=== PATIENT | male | born 1985 | race Caucasian/White ===

== ENCOUNTER → 2023-04-28 | Emergency (ER) | payer BC, OTHER ==
--- OUTSIDE RECORDS SUMMARY | 2023-04-28 18:56 | XMS REPORT | Continuity of Care Document ---
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 Phone Unavailable Unavailable Unavailable Payers Payer Name Policy Type Policy Number Effective Date Expirati on Date Source [employer] [id number] 2018 00:00:00 Allergies, Adverse Reactions, Alerts Allergy Name Allergy Type Status Severity Reaction(s) Onset Date Inactive Date Treating Clinician Comments Source NO KNOWN ALLERGIE S Drug Class Active [facility] Encounters Start Date/Time End Date/Time Encounter Type Admission Type Attending Clinicians Care Facility Care Department Encounter ID Source 2020-05-25 10:20:00 2020-05-25 10:20:00 Outpatient [facility] [id number] [facility] 2020-05-04 10:25:00 2020-05-04 10:25:00 Outpatient [facility] [id number] [facility] 2020-05-04 10:25:00 2020-05-04 10:25:00 Outpatient [facility] [id number] [facility]
--- NOTE | 2023-04-28 19:38 | ER ---
Nurse's Notes [facility] Name: Forrest Jolley Age: 38 yrs Sex: Male : 1985 Arrival Date: 04/28/2023 Time: 18:53 Bed IW7 Private MD: Diagnosis: Scalp Laceration/ Open wound of scalp Presentation: 04/27 19:18 Chief complaint: Patient states: Slipped hit head, head laceration. Coronavirus screen: vc1 At this time, the client does not indicate any symptoms associated with coronavirus-19. Ebola Screen: Patient negative for fever greater than or equal to 101.5 degrees Fahrenheit, and additional compatible Ebola Virus Disease symptoms Patient denies exposure to infectious person. Patient denies travel to an Ebola-affected area in the 21 days before illness onset. No symptoms or risks identified at this time. Mechanism of Injury: The problem was sustained at home, resulted from a fall, slipped. Initial Sepsis Screen: Does the patient meet any 2 criteria? No. Patient's initial sepsis screen is negative. Does the patient have a suspected source of infection? No. Patient's initial sepsis screen is negative. Risk Assessment: Do you want to hurt yourself or someone else? Patient reports no desire to harm self or others. Onset of symptoms was April 18, 2023. Mechanism of Injury: Fall. Transition of care: patient was not received from another setting of care. 19:18 Method Of Arrival: Ambulatory vc1 19:18 Acuity: BELLO 3 vc1 Triage Assessment: 19:22 General: Appears in no apparent distress. comfortable, Behavior is calm, cooperative, vc1 appropriate for age. Pain: Complains of pain in right parietal area Pain does not radiate. Pain currently is 1 out of 10 on a pain scale. Quality of pain is described as aching, Pain began suddenly, 3-3-24. EENT: No deficits noted. No signs and/or symptoms were reported regarding the EENT system. Neuro: Level of Consciousness is awake, alert, obeys commands, Reports headache the first few days. Cardiovascular: No deficits noted. Capillary refill < 3 seconds Patient's skin is warm and dry. Respiratory: Airway is patent Respiratory effort is even, unlabored, Respiratory pattern is regular, symmetrical, Breath sounds are clear. GI: No deficits noted. No signs and/or symptoms were reported involving the gastrointestinal system. : No deficits noted. No signs and/or symptoms were reported regarding the genitourinary system. Derm: Wound noted right parietal area. Musculoskeletal: No deficits noted. No signs and/or symptoms reported regarding the musculoskeletal system. Injury Description: Laceration sustained to right parietal area is contaminated, was sustained 10 days ago. Historical: - Allergies: 19:21 No Known Allergies; vc1 - Home Meds: 19:21 None [Active]; vc1 - PMHx: 19:21 None; vc1 - PSHx: 19:21 None; vc1 - Immunization history:: Client reports receiving the 2nd dose of the Covid vaccine, Flu vaccine is up to date. - Social history:: Smoking status: Patient denies any tobacco usage or history of. Screenin:[address] [facility] ED Fall Risk Assessment (Adult) History of falling in the last 3 months, vc1 including since admission No falls in past 3 months (0 pts) Confusion or Disorientation No (0 pts) Intoxicated or Sedated No (0 pts) Impaired Gait No (0 pts) Mobility Assist Device Used No (0 pt) Altered Elimination No (0 pt) Score/Fall Risk Level 0 - 2 = Low Risk Oriented to surroundings, Maintained a safe environment, Educated pt \T\ family on fall prevention, incl call for assistance when getting out of bed. Abuse screen: Denies threats or abuse. Nutritional screening: No deficits noted. Tuberculosis screening: No symptoms or risk factors identified. Assessment: 19:33 General: See triage assessment. vc1 Vital Signs: 19:18 BP 150 / 84; Pulse 79; Resp 16; Temp 98.5; Pulse Ox 99% ; Weight 79.38 kg; Height 5 ft. vc1 11 in. ; Pain 1/10; 19:18 Body Mass Index 24.41 (79.38 kg, 180.34 cm) vc1 19:18 Pain Scale: Adult vc1 Vianney Coma Score: 19:18 Eye Response: spontaneous(4). Motor Response: obeys commands(6). Verbal Response: vc1 oriented(5). Total: 15. ED Course: 18:56 Patient arrived in ED. ae5 19:21 Triage completed. vc1 19:21 Arm band placed on right wrist. vc1 19:26 Rob Huerta PA is PHCP. cp 19:26 Forrest Garcia MD is Attending Physician. cp 19:33 Patient has correct armband on for positive identification. Seen in triage. Provided vc1 Education on: Wash with mild shampoo. 19:34 No provider procedures requiring assistance completed. Patient did not have IV access vc1 during this emergency room visit. Administered Medications: No medications were administered Medication: 19:33 VIS not applicable for this client. vc1 Outcome: 19:34 Discharged to home ambulatory, vc1 19:34 Condition: good 19:34 Discharge instructions given to patient, Instructed on discharge instructions, follow up and referral plans. medication usage, Demonstrated understanding of instructions, follow-up care, medications, Prescriptions given X 1, 19:38 Discharge ordered by MD. cp 19:49 Patient left the ED. vc1 Signatures: Rob Huerta PA PA cp Calcote, Vanessa, RN RN vc1 Maria Isabel Hearn ae5
--- NOTE | 2023-04-28 19:38 | EDPHYS ---
Physician Documentation [facility] Name: Forrest Jolley Age: 38 yrs Sex: Male : 1985 Arrival Date: 04/28/2023 Time: 18:53 Bed IW7 Private MD: ED Physician Forrest Garcia HPI: 04/27 19:33 This 38 yrs old Male presents to ER via Ambulatory with complaints of Head Injury-Adult.cp 19:33 The patient or guardian reports a laceration. The complaints affect the scalp. Context cp of injury: resulted from a fall. Onset: The symptoms/episode began/occurred 10 day(s) ago. Patient is a 38-year-old male who presents to the emergency department with concern for infected scalp laceration that he sustained from a fall onto the concrete 10 days ago. Patient denies any loss of consciousness states he has cleaned the wound with some peroxide and put some liquid stitch over the wound to close it. Patient has noticed occasional bloody drainage from the wound but otherwise no significant pain noted. Historical: - Allergies: 19:21 No Known Allergies; vc1 - Home Meds: 19:21 None [Active]; vc1 - PMHx: 19:21 None; vc1 - PSHx: 19:21 None; vc1 - Immunization history:: Client reports receiving the 2nd dose of the Covid vaccine, Flu vaccine is up to date. - Social history:: Smoking status: Patient denies any tobacco usage or history of. ROS: 19:34 Constitutional: Negative for body aches, chills, fever, poor PO intake, cp 19:34 Skin: Positive for laceration(s), of the scalp, 19:34 Neuro: Negative for altered mental status, headache, weakness, 19:34 All other systems are negative, Exam: 19:35 Constitutional: The patient appears in no acute distress, alert, awake, comfortable, cp non-toxic, well developed, well nourished, 19:35 Head/face: Noted is Wound noted to posterior scalp area. Unable to determine the margins of the wound as there is dried glue over the wound with small amount of dried blood and yellow appearing drainage. Mild swelling of the wound but no significant redness noted. 19:35 ENT: External ear(s): are unremarkable, Nose: is normal, Mouth: Lips: moist, Oral mucosa: moist, 19:35 Neck: C-spine: vertebral tenderness, is not appreciated, crepitus, is not appreciated, ROM/movement: is normal, is supple, without pain, no range of motions limitations, 19:35 Chest/axilla: Inspection: normal, 19:35 Cardiovascular: Rate: normal, 19:35 Respiratory: the patient does not display signs of respiratory distress, Respirations: normal, 19:35 Neuro: Orientation: to person, place \T\ time. Mentation: is normal, Motor: moves all fours, strength is normal, Gait: is steady, at a normal pace, without difficulty, Vital Signs: 19:18 BP 150 / 84; Pulse 79; Resp 16; Temp 98.5; Pulse Ox 99% ; Weight 79.38 kg; Height 5 ft. vc1 11 in. ; Pain 1/10; 19:18 Body Mass Index 24.41 (79.38 kg, 180.34 cm) vc1 19:18 Pain Scale: Adult vc1 [place] Coma Score: 19:18 Eye Response: spontaneous(4). Motor Response: obeys commands(6). Verbal Response: vc1 oriented(5). Total: 15. MDM: 19:26 Patient medically screened. cp 19:38 Data reviewed: vital signs, nurses notes, and as a result, I will discharge patient. cp 19:38 Differential diagnosis: cellulitis, abscess. Counseling: I had a detailed discussion cp with the patient and/or guardian regarding the historical points, exam findings, and any diagnostic results supporting the discharge/admit diagnosis, to return to the emergency department if symptoms worsen or persist or if there are any questions or concerns that arise at home. Administered Medications: No medications were administered Disposition: 20:08 Co-signature as Attending Physician, Forrest Garcia MD I reviewed the patient's care rt provided by the Advanced Practice Provider and agree with the diagnosis and treatment plan. Disposition Summary: 04/28/23 19:38 Discharge Ordered Notes: Location: Home cp Problem: new cp Symptoms: are unchanged cp Condition: Stable cp Diagnosis - Scalp Laceration/ Open wound of scalp cp Followup: cp - With: Private Physician - When: 2 - 3 days - Reason: Wound Recheck Discharge Instructions: - Discharge Summary Sheet cp - Wound Care, Adult cp Forms: - Medication Reconciliation Form cp - Thank You Letter cp - Antibiotic Education cp - Prescription Opioid Use cp - Patient Portal Instructions cp - Leadership Thank You Letter cp Prescriptions: - Cephalexin 500 mg Oral Capsule - take 1 capsule ORAL route every 8 hours for 10 days; 30 capsule; Refills: 0, cp Product Selection Permitted Signatures: Rob Huerta PA PA cp Calcote, Vanessa, RN RN vc1 Forrest Garcia MD MD rt
[2023-04-28 20:07] VITALS: BP 150/84; TEMP 98.5; O2SAT 99
== END ==
LOC: ER 18:53
DX: S01.01XA Laceration without foreign body of scalp, initial encounter (principal)